=== PATIENT | female | born 1990 | race Caucasian/White ===

== ENCOUNTER 2018-04-03 06:10 | Emergency (ER) | payer OTHER ==
[~2018-04-03] VITALS: Ht 170.2 cm; Wt 99.8 kg
[~2018-04-03 06:10] MED LIST: ALEVE220 MG PO; ALKA-SELTZER P1 EA13 PO; BACTRIM DS TAB1 EACH PO; CIPRO500 MG PO; CODEINE-GUAIFE473 ML PO; CYCLOBENZAPRINE10 MG PO; GUAIFENESIN-CO118 ML PO; IBUPROFEN800 MG PO; KEFLEX500 MG PO; LIDOCAINE30 G TOP; LORTAB 7.5-5001 EACH PO; NAPROXEN500 MG PO; NORCO 5-325 TA1 EACH PO; NYQUIL D COLD295 ML PO; PREDNISONE20 MG PO; SUDOGEST60 MG PO
[2018-04-03] MEDS ORDERED: AUGMENTIN 875-1 EACH PO (06:34)
[2018-04-03] MEDS ORDERED: GUAIFENESIN AC473 ML PO (06:34)
== END 2018-04-03 06:49 | disposition home or self-care (01) ==
LOC: ED 06:10
DX: J01.90 Acute sinusitis, unspecified (principal); H66.92 Otitis media, unspecified, left ear; Z87.891 Personal history of nicotine dependence
CPT/HCPCS: 99283

== ENCOUNTER 2020-05-08 09:10 | Emergency (ER) | payer OTHER ==
[~2020-05-08] VITALS: Ht 170.2 cm; Wt 94.3 kg
[~2020-05-08 09:10] MED LIST changes: +AUGMENTIN 875-1 EACH PO; +GUAIFENESIN AC473 ML PO
[2020-05-08] MEDS ORDERED: LITHIUM CARBON300 M1 PO (09:43)
[2020-05-08] MEDS ORDERED: PREDNISONE20 MG PO (11:42)
== END 2020-05-08 12:00 | disposition home or self-care (01) ==
LOC: ED 09:10
DX: M54.41 Lumbago with sciatica, right side (principal); F31.9 Bipolar disorder, unspecified; F17.200 Nicotine dependence, unspecified, uncomplicated; Z79.899 Other long term (current) drug therapy
CPT/HCPCS: 96374; 99283-25; J1100; J1885